=== PATIENT | male | born 1990 | race Caucasian/White ===

== ENCOUNTER 2018-03-13 20:35 | Emergency (ER) | payer OTHER ==
[~2018-03-13] VITALS: Ht 193 cm; Wt 70.3 kg
[~2018-03-13 20:35] MED LIST: CLEOCIN HCL300 MG PO; TRAMADOL 50 MG50 MG PO
[2018-03-13] MEDS ORDERED: NOHOMEMEDICATIONS (20:56)
[2018-03-13 21:25] LABS: ABSOLUTE BASOPHILS 0.1 thou/uL (0.0-0.2); ABSOLUTE LYMPHOCYTES 1.7 thou/uL (0.8-5.3); ABSOLUTE NEUTROPHILS 7.3 thou/uL (1.6-8.1); BASOPHILS 0.7 %; EOSINOPHILS 0.4 %; HEMATOCRIT 41.2 % (42.0-52.0); HEMOGLOBIN 13.9 gm/dL (14.0-18.0); LYMPHOCYTES 16.7 %; MCH 30.9 pg (26.0-34.0); MCHC 33.7 g/dL (28.0-37.0); MCV 91.5 fL (80.0-100.0); MPV 8.1 fl. (7.2-11.1); NUCLEATED RBCS 0 /100WBC; PLATELET COUNT* 210 thou/uL (150-400); POLYS 72.2 %; RDW-CV 13.4 % (10.5-14.5); WBC 10.2 thou/uL (4.0-11.0)
[2018-03-13 21:45] LABS: CALCIUM 8.5 mg/dL (8.5-10.1); CREATININE 0.9 mg/dL (0.6-1.3); POTASSIUM 3.9 mmol/L (3.5-5.1)
[2018-03-13 21:51] LABS: ALBUMIN 3.8 g/dL (3.4-5.0); TOTAL BILIRUBIN 0.5 mg/dL (<0.1-1.0); TOTAL PROTEIN 7.5 g/dL (6.4-8.2)
[2018-03-13] MEDS ORDERED: HYDROCODONE-AP1 EAC6 PO (22:22)
[2018-03-13] MEDS ORDERED: NABUMETONE 750750 M1 PO (22:22)
[2018-03-13] MEDS ORDERED: CLEOCIN HCL150 MG PO (22:22)
[2018-03-13 22:45] VITALS: BP 107/44
== END 2018-03-13 22:45 | disposition home or self-care (01) ==
LOC: M.ERS 20:35
PROVIDERS: Nurse Practitioner Family
DX: L03.115 Cellulitis of right lower limb (principal); L02.415 Cutaneous abscess of right lower limb; M89.9 Disorder of bone, unspecified; F17.210 Nicotine dependence, cigarettes, uncomplicated; Z88.1 Allergy status to other antibiotic agents; Z88.8 Allergy status to other drugs, medicaments and biological substances